=== PATIENT | male | born 1985 | race Caucasian/White ===

== ENCOUNTER 2022-03-03 08:18 | Emergency (ER) | payer SELFPAY ==
[2022-03-03] MEDS ORDERED: predniSONE 20 MG TAB ONE (09:04)
== END 2022-03-03 09:07 | disposition home or self-care (01) ==
LOC: CSHERS 08:18
DX: L25.9 Unspecified contact dermatitis, unspecified cause (principal)
CPT/HCPCS: 99283; J7512